=== PATIENT | female | born 1980 | race Two or more races ===

== ENCOUNTER 2024-02-16 07:46 | Day surgery (SDC) | payer OTHER ==
[2024-02-10 10:30] LABS: HEMOGLOBIN 12.6 g/dL (12.0-15.00); MEAN CELL VOLUME 84.7 fL (80.00-100.00); MEAN CORPUSCULAR HGB CONC 34.2 g/dl (32.0-36.0); PLATELET COUNT 266 K/uL (150-450); RED BLOOD COUNT 4.36 M/uL (4.00-6.00); RED CELL DISTRIBUTION WIDTH 12.9 % (11.5-14.5)
[2024-02-10 10:30] LABS: PH,URINE 5.5 (5.0-8.0); URINE APPEARANCE Clear; URINE BILIRRUBIN Negative (NEGATIVE); URINE BLOOD Small; URINE COLOR Yellow; URINE GLUCOSE Negative (NEGATIVE); URINE KETONE Negative (NEGATIVE); URINE LEUKOCYTE Negative; URINE NITRATE Negative; URINE PROTEIN Negative (NEGATIVE); URINE UROBILINOGEN 0.2 E.U./dl
[2024-02-10 10:31] LABS: URINE BACTERIA 1515.7 uL (0.0-1933); URINE CAST 0.15 uL (0.0-1.40); URINE EPITHELIAL CELLS 19.4 uL (0.0-38.8)
[2024-02-10 10:54] LABS: INR 1.03; PARTIAL THROMBOPLASTIN TIME 32.7 SECONDS (22.0-34.0); PROTHROMBIN TIME 11.2 SECONDS (9.0-11.5)
[2024-02-10 11:11] LABS: ALBUMIN 4.3 gm/dL (3.4-5.0); BILIRUBIN TOTAL 0.34 mg/dL (0.3-1.2); CALCIUM 8.9 mg/dL (8.5-10.1); CREATININE SERUM 0.72 mg/dL (0.55-1.02); GFR 87.59; GLOBULINA 3.8 G/DL (2.4-3.5); POTASSIUM 4.24 mEq/L (3.5-5.1); TOTAL PROTEIN 8.1 gm/dL (6.4-8.2)
[~2024-02-16 07:46] MED LIST: CRESTOR40 MG
[2024-02-16] MEDS ORDERED: TYLENOL ARTHRI650 MG PO (09:54)
[2024-02-16] MEDS ORDERED: TRAMADOL HCL50 MG PO (09:54)
[2024-02-16] MEDS ORDERED: MIRALAX17 GM PO (09:54)
[2024-02-16] MEDS ORDERED: KETO10TA2 PO (09:54)
[2024-02-16] MEDS ORDERED: BUPIVACAINE HCL/MPF 0.5% 30ML VIAL ONE (10:17)
[2024-02-16] MEDS ORDERED: CEFAZOLIN SODIUM 1,000 MG VIAL ONE (10:17)
== END 2024-02-16 15:40 | disposition home or self-care (01) ==
LOC: CIR.AMB 07:46
PROVIDERS: ATTEND Surgery
DX: K42.0 Umbilical hernia with obstruction, without gangrene (principal); K43.6 Other and unspecified ventral hernia with obstruction, without gangrene; E78.5 Hyperlipidemia, unspecified
CPT/HCPCS: 49594; C1781

== ENCOUNTER 2024-02-25 16:01 | Emergency (ER) | payer OTHER ==
[~2024-02-25] VITALS: Ht 157.5 cm; Wt 63.5 kg
[~2024-02-25 16:01] MED LIST changes: +KETO10TA2 PO; +MIRALAX17 GM PO; +TRAMADOL HCL50 MG PO; +TYLENOL ARTHRI650 MG PO
[2024-02-25] MEDS ORDERED: DIPHENHYDRAMINE HCL 50 MG/ML VIAL 1ML IM STA (18:15)
[2024-02-25] MEDS ORDERED: DIPHENHYDRAMINE HCL 50 MG/ML VIAL 1ML ONE (18:28)
== END 2024-02-25 18:34 | disposition home or self-care (01) ==
LOC: ER 16:03
DX: L50.9 Urticaria, unspecified (principal)